=== PATIENT | male | born 1965 | race Hispanic/Latino ===

== ENCOUNTER 2019-09-05 18:37 | Emergency (ER) | payer MEDICAID ==
[2019-09-05] MEDS ORDERED: ACETAMINOPHEN EXTRA STRENGTH 500 MG TABLET ONE (19:41)
== END 2019-09-05 21:15 | disposition home or self-care (01) ==
LOC: EDH 18:37
DX: M25.512 Pain in left shoulder (principal); J44.9 Chronic obstructive pulmonary disease, unspecified; F41.9 Anxiety disorder, unspecified
CPT/HCPCS: 73030